=== PATIENT | female | born 1990 | race Caucasian/White ===

== ENCOUNTER 2021-09-04 11:49 | Emergency (ER) | payer SELFPAY ==
--- NOTE | ~2021-09-04 | XR_ITS ---
EXAMINATION: XR knee RT 3V DATE: 09/04/2021 12:12 INDICATION: Pain and swelling at the right patella post fall one month prior TECHNIQUE: AP, lateral and sunrise views of the right knee were obtained COMPARISON: None. FINDINGS: Alignment is normal. No fracture. No joint effusion/layering lipohemarthrosis. Suresh-Stieda les ion heterotopic ossification at the medial epicondyle at the site of the proximal medial collateral l igament likely sequela of chronic sprain/tear. Soft tissues are unremarkable. IMPRESSION: 1. No right knee joint effusion or acute/subacute osseous abnormality. 2. Suresh-Stieda lesion with heterotopic ossification along the medial epicondyle of the distal r ight femur consistent with chronic strain/tear of the proximal medial collateral ligament. Reviewed, dictated and finalized at location A. IMPRESSION: 1. No right knee joint effusion or acute/subacute osseous abnormality. 2. Suresh-Stieda lesion with heterotopic ossification along the medial epic ondyle of the distal right femur consistent with chronic strain/tear of the pro ximal medial collateral ligament.
[2021-09-04 11:53] VITALS: BP 131/87; PULSE 90; RESP 18; TEMP 36.4; O2SAT 100
[2021-09-04] MEDS: ACETAMINOPHEN 500 MG TABLET 1000 MG PO (12:14)
[2021-09-04] MEDS: IBUPROFEN 400 MG TABLET 800 MG PO (12:14)
--- NOTE | 2021-09-04 16:22 | ED.LOWEXIN ---
HPI - Extremity Injury (Lower) General Chief Complaint: Extremity Injury, Lower Stated Complaint: R. leg injury Time Seen by Provider: 09/04/21 11:57 History of Present Illness HPI Narrative: Patient is a 30-year-old female here for evaluation of right knee pain after falling down 4 steps last month. States that she accidentally slipped, and landed on her right knee in the accident. No head injury or loss of consciousness in the accident. Since then, she has been walking, but does note that it is painful. Denies pain with range of motion, only notes pain with bearing weight. She has not attempted ice and has not tried any medications for her pain. She states that the pain is isolated in her knee, she denies any pain in her ankle, foot, right hip. Related Data Allergies Allergy/AdvReac Type Severity Reaction Status Date / Time No Known Allergies Allergy Verified 09/04/21 12:13 Review of Systems Review of Systems: Gen: Denies fevers or chills Eyes: Denies eye pain or visual change ENT: Denies congestion Respiratory: Denies shortness of breath or cough CV: Denies chest pain or palpitations GI: Denies abdominal pain nausea, emesis or diarrhea denies burning, urgency, frequency or hematuria Musculoskeletal: Reports right knee pain Neuro: Denies numbness, tingling, weakness or focal weakness Skin: Denies rash Except as documented, all other systems reviewed and negative Exam Narrative: APPEARANCE: Well appearing, no pain in distress, well-nourished. Head: Normocephalic and atraumatic. EYES: PERRLA/EOMI, conjunctivae clear NOSE: No nasal drainage EARS: External ear normal in appearance THROAT: Oropharynx is clear. Mucous membranes are moist. NECK: Supple. No adenopathy, no masses. RESPIRATORY: Airway patent, respirations nonlabored. Clear to auscultation bilaterally, no rales, rhonchi, wheezing. CARDIOVASCULAR: 2+ dp/pt pulses bilaterally. Regular rate and rhythm without murmurs, rubs, or gallops. ABDOMINAL: Normoactive bowel sounds. Soft, nontender, nondistended. No rebound tenderness or guarding. MUSCULOSKELETAL: No bony tenderness to palpation of right patella or distal femur. She has full range of motion in the right knee without pain. She is weightbearing with a slight limp. No effusion noted. Anterior and posterior drawer test negative. She does have some ligamentous laxity noted with valgus stress, no laxity noted with varus stress. No peripheral edema. NEURO: Normal speech. No focal neurologic deficits. SKIN: Skin is warm and dry. No rashes. PSYCHIATRIC: Normal affect/mood. Course Vital Signs Vital signs: Vital Signs Temperature 97.5 F L 09/04/21 11:53 Pulse Rate 90 09/04/21 11:53 Respiratory Rate 18 09/04/21 11:53 Blood Pressure 131/87 09/04/21 11:53 Pulse Oximetry 100 09/04/21 11:53 Oxygen Delivery Room Air 09/04/21 11:53 Temperature 97.5 F L 09/04/21 11:53 Pulse Rate 90 09/04/21 11:53 Respiratory Rate 18 09/04/21 11:53 Blood Pressure 131/87 09/04/21 11:53 Pulse Oximetry 100 09/04/21 11:53 Oxygen Delivery Room Air 09/04/21 11:53 MDM - Extremity Injury (Lower) MDM Narrative Medical decision making narrative: 30-year-old female here for evaluation of right knee pain for the past month after falling down some steps. Here, she is nontoxic-appearing, she is weightbearing, has no significant bony tenderness on exam but does have some ligamentous laxity noted with valgus stress. Her x-ray shows no fracture or effusion, but she does have a finding that could be consistent with an MCL tear. MCL tear is high on the differential especially given the laxity noted on exam. She was provided with a knee brace for comfort and was given orthopedic follow-up. Doubt septic arthritis or gonococcal arthropathy given that this was traumatic in nature, no effusion seen on x-ray or exam, patient is weightbearing, has no systemic symptoms. She was given reasons to return to the ED
== END 2021-09-04 13:22 | disposition home or self-care (01) ==
PROVIDERS: Emergency Provider Emergency Medicine
DX: S89.91XA Unspecified injury of right lower leg, initial encounter (principal); W10.9XXA Fall (on) (from) unspecified stairs and steps, initial encounter
CPT/HCPCS: 73562; 99283; A9270